=== PATIENT | male | born 1990 | race Caucasian/White ===

== ENCOUNTER 2017-05-20 11:31 | Emergency (ER) | payer OTHER ==
[~2017-05-20] VITALS: Ht 180.3 cm; Wt 91.8 kg
--- NOTE | 2017-05-20 12:47 | REP ---
RIGHT ANKLE SERIES, FOUR VIEWS: There is no evidence of an acute fracture, dislocation or intrinsic bone disease. There is later soft tissue swelling. The ankle mortise is anatomic. IMPRESSION: No fracture or dislocation. Signed by Dev Cuello MD 05/20/2017 08:18 P
[2017-05-20 13:33] VITALS: BP 140/87
== END 2017-05-20 13:45 | disposition home or self-care (01) ==
LOC: M ED 12:28
DX: S93.401A Sprain of unspecified ligament of right ankle, initial encounter (principal); X50.1XXA Overexertion from prolonged static or awkward postures, initial encounter; Y92.830 Public park as the place of occurrence of the external cause; Y93.9 Activity, unspecified; Y99.9 Unspecified external cause status; F17.200 Nicotine dependence, unspecified, uncomplicated

== ENCOUNTER 2017-11-29 22:55 | Emergency (ER) | payer OTHER ==
[2017-11-29] MEDS: ONDANSETRON 4 MG ORAL DISINTEGRATING TAB (S0181) PO (23:30)
[2017-11-29] MEDS: MORPHINE 10 MG/ML 1ML VIAL IM (23:30)
[2017-11-30] MEDS: PERCOCET 5MG/325MG TAB PO (00:45)
[2017-11-30] MEDS: OXYCODONE/APAP 5MG/325MG(BULK FOR ED) 1 TABLET PO (00:45)
== END 2017-11-30 01:09 | disposition home or self-care (01) ==
LOC: M ED 11-30 01:09
DX: T23.202A Burn of second degree of left hand, unspecified site, initial encounter (principal); T31.0 Burns involving less than 10% of body surface; F17.200 Nicotine dependence, unspecified, uncomplicated; X02.0XXA Exposure to flames in controlled fire in building or structure, initial encounter; Y92.090 Kitchen in other non-institutional residence as the place of occurrence of the external cause
CPT/HCPCS: 96372